=== PATIENT | male | born 1995 | race Caucasian/White ===

== ENCOUNTER 2021-03-10 13:46 | Emergency (ER) | payer MEDICAID, OTHER ==
[~2021-03-10] VITALS: Ht 175.3 cm; Wt 83.8 kg
[2021-03-10] MEDS ORDERED: LIDOCAINE-MPF 1%, 5ML INFIL ONE (14:00)
[2021-03-10] MEDS ORDERED: L.E.T SOLUTION TP ONE ×3 (14:00→16:59)
--- NOTE | 2021-03-10 15:49 | NUR ---
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
--- NOTE | 2021-03-10 17:00 | NUR ---
LET SOLUTION PLACED ON PT WOUNDS.
--- NOTE | 2021-03-10 17:05 | NUR ---
ordered lido removed. pt awaiting erp eval. pt in line to be picked up.
[2021-03-10] MEDS ORDERED: LIDOCAINE-MPF 1%, 5ML ONE (17:07)
--- NOTE | 2021-03-10 18:15 | NUR ---
wounds have been cleaned by tech. wound on right hand, unable to clean well due to embedded gravel. ERP made aware, stated they are working on getting to pt.
--- NOTE | 2021-03-10 19:14 | NUR ---
REPORT TO ED
--- NOTE | 2021-03-10 19:16 | NUR ---
SHAINA GIVEN TO DILIP SYKES WHO PICKED UP PT
[2021-03-10] MEDS ORDERED: NEOSPORIN OINT. PKT 1 PACKET ONE (20:06)
[2021-03-10] MEDS ORDERED: IBUPROFEN 600 MG TABLET ONE (20:11)
[2021-03-10 20:15] VITALS: BP 121/88
[2021-03-10] MEDS ORDERED: IBUPROFEN 600 MG TABLET PO ONE (20:30)
== END 2021-03-10 20:25 | disposition home or self-care (01) ==
LOC: ED 20:15
DX: S63.502A Unspecified sprain of left wrist, initial encounter (principal); S63.501A Unspecified sprain of right wrist, initial encounter; S09.90XA Unspecified injury of head, initial encounter; S60.512A Abrasion of left hand, initial encounter; S60.511A Abrasion of right hand, initial encounter; S70.312A Abrasion, left thigh, initial encounter; S50.812A Abrasion of left forearm, initial encounter; W18.30XA Fall on same level, unspecified, initial encounter; Y93.89 Activity, other specified; Y92.410 Unspecified street and highway as the place of occurrence of the external cause; Y99.8 Other external cause status
CPT/HCPCS: 99284